=== PATIENT | male | born 1970 | race African-American/Black ===

== ENCOUNTER 2019-04-23 19:36 | Inpatient (IN) | payer OTHER ==
[2019-04-23 23:52] VITALS: BMI 26.4
--- NOTE | 2019-04-24 02:17 | HP ---
"COWS - Scale Resting Pulse: 0= [place] 80 or Below Sweatin=Flushed/Facial Moisture Restless Observation: 1= Difficult to Sit Still Pupil Size: 0= Normal to Room Light Bone or Joint Aches: 2= Severe Diffuse Aches Runny Nose/ Eye Tearin= Runny Nose/Eyes GI Upset > 30mins: 2= Nausea/Diarrhea (DIARRHEA X 3) Tremor Observation: 2= Slight Tremor Visible Yawning Observation: 0= None Anxiety or Irritability: 2=Irritable/Anxious Goose Flesh Skin: 3=Piloerection COWS Score: 16 CIWA Score Nausea/Vomitin-Mild Nausea/No Vomiting Muscle Tremors: 3 Anxiety: 3 Agitation: 4-Moderately Restless Paroxysmal Sweats: 3 Orientation: 0-Oriented Tacttile Disturbances: 0-None Auditory Disturbances: 0-None Visual Disturbances: 0-None Headache: 1-Very Mild CIWA-Ar Total Score: 15 - Admission Criteria [facility] Guidelines: Admission for Medically Managed Detox: Requires at least one of the followin. CIWA greater than 12 2. Seizures within the past 24 hours 3. Delirium tremens within the past 24 hours 4. Hallucinations within the past 24 hours 5. Acute intervention needed for co occurring medical disorder 6. Acute intervention needed for co occurring psychiatric disorder 7. Severe withdrawal that cannot be handled at a lower level of care (continued vomiting, continued diarrhea, abnormal vital signs) requiring intravenous medication and/or fluids 8. Admission [facility] Chief Complaint: Heroin and Xanax withdrawal symptoms Allergies/Adverse Reactions: Allergies Allergy/AdvReac Type Severity Reaction Status Date / Time No Known Allergies Allergy Verified 04/23/19 23:47 History of Present Illness: 48 years old male with opioid and benzodiazepine dependence is seeking admission to detox. Patient reports that he started using Heroin at age 16 years and Xanax at age 21 years. He stopped for 11 years and became dependent again. He denies any medical and psych. history. He is unemployed and homeless. He denies suicide attempt and suicidal ideation at this time. This is his first admission to [facility] Confidential Drug Utilization Report Search Terms: MANDA RAWLS, 1970 Search Date: 04/24/2019 02:14:15 AM The Drug Utilization Report below displays all of the controlled substance prescriptions, if any, that your patient has filled in the last twelve months. The information displayed on this report is compiled from pharmacy submissions to the Department, and accurately reflects the information as submitted by the pharmacies. This report was requested by: Rena Lopez | Reference #: [id number] There are no results for the search terms that you entered. Exam Limitations: No Limitations - Ebola screening Have you traveled outside of the country in the last 21 days: No (N) Have you had contact with anyone from an Ebola affected area: No Do you have a fever: No - Review of Systems Constitutional: Chills, Loss of Appetite, Malaise, Night Sweats, Changes in sleep EENT: reports: Nose Congestion Respiratory: reports: No Symptoms reported Cardiac: reports: No Symptoms Reported GI: reports: Diarrhea (x 3), Nausea, Poor Appetite, Poor Fluid Intake, Abdominal cramping : reports: No Symptoms Reported Musculoskeletal: reports: Back Pain, Muscle Pain Integumentary: reports: Dryness, Flushing Neuro: reports: Tremors Endocrine: reports: No Symptoms Reported Hematology: reports: No Symptoms Reported Psychiatric: reports: Mood/Affect Appropiate, Orientated x3, Anxious, Depressed Other Systems: Reviewed and Negative Patient History - Patient Medical History Hx Anemia: No Hx Asthma: No Hx Chronic Obstructive Pulmonary Disease (COPD): No Hx Cancer: No Hx Cardiac Disorders: No Hx Congestive Heart Failure: No Hx Hypertension: No Hx Hypercholesterolemia: No HX Cerebrovascular Accident: No Hx Seizures: No Hx Dementia: No Hx Diabetes: No Hx Gastrointestinal Disorders: No Hx Liver Disease: No Hx Genitourinary Disorders: No Hx Sexually Transmitted Disorders: No Hx Renal Disease (ESRD): No Hx Thyroid Disease: No Hx Human Immunodeficiency Virus (HIV): No (Negative 2017) Hx Hepatitis C: No Hx Depression: No Hx Suicide Attempt: No (Denies suicide attempt/ suicidal ideation at this time) Hx Bipolar Disorder: No Hx Schizophrenia: No - Patient Surgical History Past Surgical History: No - PPD History Previous Implant?: Yes Documented Results: Negative w/o proof Implanted On Prior [facility] Admission?: No PPD to be Administered?: Yes - Reproductive History Patient is a Female of Child Bearing Age (11 -55 yrs old): No (male) - Smoking Cessation Smoking history: Current every day smoker Have you smoked in the past 12 months: Yes Aproximately how many cigarettes per day: 10 Hx Chewing Tobacco Use: No Initiated information on smoking cessation: Yes 'Breaking Loose' booklet given: 04/24/19 - Substance & Tx. History Hx Alcohol Use: No Hx Substance Use: Yes Substance Use Type: Cocaine, Heroin, Marijuana, Tranquilizers Hx Substance Use Treatment: Yes ([facility]) - Substances abused Heroin Substance route: Inhalation Frequency: Daily Amount used: 13 bags/day Age of first use: 16 Date of last use: 04/23/19 Admission Physical Exam [facility] - Vital Signs Vital Signs: Vital Signs - 24 hr 04/23/19 04/24/19 23:49 00:34 Temperature 97.0 F L 97.0 F L Pulse Rate 72 72 Respiratory 16 16 Rate Blood Pressure 139/91 139/91 - Physical General Appearance: Yes: Moderate Distress, Tremorous, Irritable, Sweating, Anxious HEENTM: Yes: Within Normal Limits Respiratory: Yes: Lungs Clear, Normal Breath Sounds, No Respiratory Distress Neck: Yes: Supple Breast: Yes: Breast Exam Deferred Cardiology: Yes: Regular Rhythm, Regular Rate Abdominal: Yes: Normal Bowel Sounds, Soft Cleared for Admission [facility] - Detox or Rehab [facility] Level of Care: Medically Managed Detox Regimen/Protocol: Methadone/Valium Breathalyzer - Breathalyzer Breathalyzer: 0 Urine Drug Screen - Test Device Lot number: [id number] Expiration date: 12/15/20 - Control Is test valid?: Yes - Results Drug screen NEGATIVE: No Urine drug screen results: THC-Marijuana, MARIA LUZ-Cocaine, MOP-Opiates, OXY- Oxycodone, BZO-Benzodiazepines Inpatient Rehab Admission - Rehab Decision to Admit Inpatient rehab admission?: No"
[2019-04-24] MEDS ORDERED: BISMUTH SUBSALICYLATE 524 MG/30 ML UD PO PRN (02:36)
[2019-04-24] MEDS ORDERED: ACETAMINOPHEN 325 MG TABLET (FP) PO PRN ×2 (02:36)
[2019-04-24] MEDS ORDERED: MAGNESIUM HYDROX 2400MG/30ML ORAL SUSPENSION 30 ML CUP PO PRN (02:36)
[2019-04-24] MEDS ORDERED: MAGNESIUM CITRATE 300 ML BOTTLE PO PRN (02:36)
[2019-04-24] MEDS ORDERED: cloNIDine HCL 0.1 MG TABLET PO PRN (02:36)
[2019-04-24] MEDS ORDERED: IBUPROFEN 400 MG TABLET (FP) PO PRN (02:36)
[2019-04-24] MEDS ORDERED: MAG HYDROX/AL HYDROX/SIMETH 30 ML UNIT-DOSE CUP PO PRN (02:36)
[2019-04-24] MEDS ORDERED: NICOTINE POLACRILEX 2 MG GUM BUC PRN (02:36)
[2019-04-24] MEDS ORDERED: METHADONE HCL 10 MG TABLET (FOR DETOX USE ONLY) PO ONE (02:36)
[2019-04-24] MEDS ORDERED: MENTHOL/PHENOL 1 EACH UD MM PRN (02:36)
[2019-04-24] MEDS: diazePAM 5 MG TABLET PO PRN (03:24)
[2019-04-24] MEDS: diazePAM 5 MG TABLET PO SCH ×3 (05:44→22:02)
[2019-04-24] MEDS: PRENATAL VITAMINS W/ FOLIC ACID TABLET (FP) PO SCH (10:03)
[2019-04-24] MEDS: NICOTINE 14 MG/24 HOURS TOPICAL PATCH TD SCH (10:03)
--- NOTE | 2019-04-24 12:20 | EKG ---
Test Reason : Blood Pressure : / mmHG Vent. Rate : 068 BPM Atrial Rate : 068 BPM P-R Int : 154 ms QRS Dur : 090 ms QT Int : 404 ms P-R-T Axes : 016 085 -28 degrees QTc Int : 429 ms NORMAL SINUS RHYTHM T WAVE ABNORMALITY, CONSIDER INFERIOR ISCHEMIA ABNORMAL ECG NO PREVIOUS ECGS AVAILABLE Confirmed by Orville Benites ([id number]) on 04/24/2019 12:19:35 PM Referred By: Confirmed By:Orville Benites
--- NOTE | 2019-04-24 16:43 | PN ---
S CIWA - CIWA Score Nausea/Vomitin-No Nausea/No Vomiting Muscle Tremors: 3 Anxiety: 3 Agitation: 2 Paroxysmal Sweats: 2 Orientation: 0-Oriented Tacttile Disturbances: 0-None Auditory Disturbances: 3-Moderate Harsh/Frighten Visual Disturbances: 0-None Headache: 0-None Present CIWA-Ar Total Score: 13 BHS COWS - Scale Resting Pulse: 1= [place] 81-100 Sweatin= Chills/Flushing Restless Observation: 1= Difficult to Sit Still Pupil Size: 0= Normal to Room Light Bone or Joint Aches: 2= Severe Diffuse Aches Runny Nose/ Eye Tearin= None GI Upset > 30mins: 1= Stomach Cramp Tremor Observation of Outstretched Hands: 2= Slight Tremor Visible Yawning Observation: 1= 1-2x During Session Anxiety or Irritability: 2=Irritable/Anxious Goose Flesh Skin: 0=Smooth Skin COWS Score: 11 S Progress Note (SOAP) Subjective: Anxious, Tremors, Sweating, Body Aches, Interrupted Sleep. Objective: PATIENT A & O X 3, OBSERVED AMBULATING ON DETOX UNIT UNASSISTED. IN NO ACUTE DISTRESS. 04/24/19 16:42 Vital Signs Temperature 96.7 F L 04/24/19 14:06 Pulse Rate 86 04/24/19 14:06 Respiratory Rate 18 04/24/19 14:06 Blood Pressure 116/77 04/24/19 14:06 O2 Sat by Pulse Oximetry (%) RESULTS OF DETOX ADMISSION LABS PENDING. 04/24/19 16:43 Assessment: 04/24/19 16:43 WITHDRAWAL SYMPTOMS. Plan: CONTINUE DETOX.
[2019-04-24] MEDS: MELATONIN 5 MG TABLETS PO PRN (22:02)
[2019-04-24] MEDS: THIAMINE HCL 100 MG TABLET (FP) PO SCH (22:02)
[2019-04-25] MEDS: diazePAM 5 MG TABLET PO SCH ×2 (05:38→17:12)
[2019-04-25] MEDS ORDERED: METHADONE HCL 10 MG TABLET (FOR DETOX USE ONLY) ONE (08:16)
[2019-04-25] MEDS ORDERED: METHADONE HCL 5 MG TABLET (FOR DETOX USE ONLY) ONE (08:16)
[2019-04-25] MEDS ORDERED: METHADONE (DETOX) 20 MG, METHADONE (DETOX) 5 MG PO ONE (10:00)
[2019-04-25] MEDS: NICOTINE 14 MG/24 HOURS TOPICAL PATCH TD SCH (10:33)
[2019-04-25] MEDS: PRENATAL VITAMINS W/ FOLIC ACID TABLET (FP) PO SCH (10:33)
--- NOTE | 2019-04-25 10:43 | PN ---
[facility] CIWA - CIWA Score Nausea/Vomitin Muscle Tremors: 3 Anxiety: 3 Agitation: 0-Normal Activity Paroxysmal Sweats: 1-Minimal Palms Moist Orientation: 0-Oriented Tacttile Disturbances: 1-Very Mild Itch/Numbness Auditory Disturbances: 0-None Visual Disturbances: 0-None Headache: 1-Very Mild CIWA-Ar Total Score: 12 BHS COWS - Scale Resting Pulse: 0= [place] 80 or Below Sweatin= Chills/Flushing Restless Observation: 1= Difficult to Sit Still Pupil Size: 1= Pupils >than Normal Bone or Joint Aches: 1= Mild Discomfort Runny Nose/ Eye Tearin= Runny Nose/Eyes GI Upset > 30mins: 2= Nausea/Diarrhea Tremor Observation of Outstretched Hands: 1= Tremor [place], Not Seen Yawning Observation: 2= >3x During Session Anxiety or Irritability: 1=Feels Anxious/Irritable Goose Flesh Skin: 0=Smooth Skin COWS Score: 12 [facility] Progress Note (SOAP) Subjective: c/o of diarrhea, nausea, yawing, weakness, back pain, interrupted sleep Objective: 04/25/19 10:43 Vital Signs Temperature 97.6 F 04/25/19 09:13 Pulse Rate 78 04/25/19 09:13 Respiratory Rate 18 04/25/19 09:13 Blood Pressure 119/80 04/25/19 09:13 O2 Sat by Pulse Oximetry (%) labs pending Assessment: 04/25/19 10:46 Aox3 no acute distress no adventitious breath sounds full ROM no gait abnormality , ambulating in the unit withdrawal sx Plan: increase PO fluids continue detox continue to monitor
[2019-04-25 11:58] LABS: HEMATOCRIT 45.8 % (35.4-49); HEMOGLOBIN 15.1 GM/dL (11.7-16.9); MCH 28.7 pg (25.7-33.7); MCHC 33.1 g/dl (32.0-35.9); MEAN CELL VOLUME 86.8 fl (80-96); MEAN PLT VOLUME 8.6 fl (7.5-11.1); PLATELET COUNT 191 K/MM3 (134-434); RBC 5.28 M/mm3 (4.00-5.60); WHITE BLOOD COUNT 8.1 K/mm3 (4.0-10.0)
[2019-04-25 12:12] LABS: ALBUMIN 3.4 g/dl (3.4-5.0); BILIRUBIN,TOTAL 0.3 mg/dL (0.2-1); BLOOD UREA NITROGEN 11.1 mg/dL (7-18); CREATININE 1.1 mg/dL (0.55-1.3); POTASSIUM 4.1 mmol/L (3.5-5.1); TOT PROT 6.4 g/dl (6.4-8.2)
[2019-04-25] MEDS: THIAMINE HCL 100 MG TABLET (FP) PO SCH (22:31)
[2019-04-26] MEDS ORDERED: diazePAM 5 MG TABLET PO ONE (06:00)
[2019-04-26] MEDS ORDERED: METHADONE HCL 10 MG TABLET (FOR DETOX USE ONLY) PO ONE (10:00)
[2019-04-26] MEDS: PRENATAL VITAMINS W/ FOLIC ACID TABLET (FP) PO SCH (10:25)
[2019-04-26] MEDS: NICOTINE 14 MG/24 HOURS TOPICAL PATCH TD SCH (10:26)
[2019-04-26] MEDS: METHOCARBAMOL 500 MG TABLET PO PRN ×2 (10:26→17:57)
--- NOTE | 2019-04-26 17:46 | PN ---
S CIWA - CIWA Score Nausea/Vomitin-No Nausea/No Vomiting Muscle Tremors: None Anxiety: 2 Agitation: 2 Paroxysmal Sweats: No Perspiration Orientation: 0-Oriented Tacttile Disturbances: 1-Very Mild Itch/Numbness Auditory Disturbances: 0-None Visual Disturbances: 2-Mild Sensitivity Headache: 0-None Present CIWA-Ar Total Score: 7 BHS COWS - Scale Resting Pulse: 0= [place] 80 or Below Sweatin= Chills/Flushing Restless Observation: 1= Difficult to Sit Still Pupil Size: 0= Normal to Room Light Bone or Joint Aches: 2= Severe Diffuse Aches Runny Nose/ Eye Tearin= None GI Upset > 30mins: 0= None Tremor Observation of Outstretched Hands: 0= None Yawning Observation: 1= 1-2x During Session Anxiety or Irritability: 2=Irritable/Anxious Goose Flesh Skin: 0=Smooth Skin COWS Score: 7 S Progress Note (SOAP) Subjective: Fatigue, Body Aches, Anxious. Objective: PATIENT A & O X 3, OBSERVED AMBULATING ON DETOX UNIT UNASSISTED. IN NO ACUTE DISTRESS. 04/26/19 17:46 Vital Signs Temperature 99.2 F 04/26/19 14:17 Pulse Rate 60 04/26/19 14:17 Respiratory Rate 20 04/26/19 14:17 Blood Pressure 121/91 04/26/19 14:17 O2 Sat by Pulse Oximetry (%) Laboratory Tests 04/25/19 04/25/19 04/25/19 08:45 08:45 08:45 WBC 8.1 RBC 5.28 Hgb 15.1 Hct 45.8 MCV 86.8 MCH 28.7 MCHC 33.1 RDW 14.0 Plt Count 191 MPV 8.6 Sodium 138 Potassium 4.1 Chloride 104 Carbon Dioxide 27 Anion Gap 7 L BUN 11.1 Creatinine 1.1 Est GFR (CKD-EPI)AfAm 92.16 Est GFR (CKD-EPI)NonAf 79.52 Random Glucose 82 Calcium 9.0 Total Bilirubin 0.3 AST 18 ALT 21 Alkaline Phosphatase 48 Total Protein 6.4 Albumin 3.4 RPR Titer Nonreactive LABS NOTED. Assessment: 04/26/19 17:46 WITHDRAWAL SYMPTOMS. Plan: CONTINUE DETOX.
[2019-04-26] MEDS: diazePAM 5 MG TABLET PO PRN (17:57)
[2019-04-26] MEDS: THIAMINE HCL 100 MG TABLET (FP) PO SCH (22:05)
[2019-04-26] MEDS: MELATONIN 5 MG TABLETS PO PRN (22:05)
[2019-04-26] MEDS: hydrOXYzine PAMOATE 25 MG CAPSULE (FP) PO PRN (22:06)
[2019-04-27] MEDS ORDERED: METHADONE HCL 10 MG TABLET (FOR DETOX USE ONLY) ONE (08:48)
[2019-04-27] MEDS ORDERED: METHADONE HCL 5 MG TABLET (FOR DETOX USE ONLY) ONE (08:48)
--- NOTE | 2019-04-27 09:52 | CONSULT ---
[facility] Psychiatric Consult - Data Date of interview: 04/27/19 Admission source: [facility] Identifying data: Patient is a 48 year old single male, father of one, unemployed, homelesss, and is not receiving financial assistance. This is patient's first admission to detox at [facility]. Patient admitted to for cocaine and opiate dependence. Substance Abuse History: - Smoking Cessation. Smoking history: Current every day smoker. Have you smoked in the past 12 months: Yes. Aproximately how many cigarettes per day: 10. Hx Chewing Tobacco Use: No. Initiated information on smoking cessation: Yes. 'Breaking Loose' booklet given: 04/24/19. - Substance & Tx. History. Hx Alcohol Use: No. Hx Substance Use: Yes. Substance Use Type : Cocaine, Heroin, Marijuana, Tranquilizers. Hx Substance Use Treatment: Yes ( [facility]). - Substances abused. Heroin. Substance route: Inhalation. Frequency: Daily. Amount used: 13 bags/day. Age of first use: 16. Date of last use: 04/23/19 Medical History: denies. Psychiatric History: Patient denies history of psychiatric hospitalization, outpatient care, and suicide attempt. Patient reports history of accepting trazodone when admitted to detox/rehab facilities. At present, patient reports difficulty sleeping. Physical/Sexual Abuse/Trauma History: denies. Mental Status Exam - Mental Status Exam Alert and Oriented to: Time, Place, Person Cognitive Function: Good Patient Appearance: Well Groomed Mood: Withdrawn Affect: Mood Congruent Patient Behavior: Cooperative Speech Pattern: Appropriate Voice Loudness: Normal Thought Process: Goal Oriented Thought Disorder: Not Present Hallucinations: Denies Suicidal Ideation: Denies Homicidal Ideation: Denies Insight/Judgement: Poor Sleep: Poorly Appetite: Fair Muscle strength/Tone: Normal Gait/Station: Normal Psychiatric Findings - Problem List ([place] 1, 2,3) (1) Opiate dependence Current Visit: Yes Status: Acute (2) Sedative hypnotic or anxiolytic dependence Current Visit: Yes Status: Acute (3) Cocaine dependence Current Visit: Yes Status: Acute (4) Substance-induced sleep disorder Current Visit: Yes Status: Acute - Initial Treatment Plan Initial Treatment Plan: Psychoeducation provided. Detoxification in progress. Will order Trazdone 50mg HS. Benefits and side effects discussed. Verbal consent given.
[2019-04-27] MEDS ORDERED: METHADONE (DETOX) 10 MG, METHADONE (DETOX) 5 MG PO ONE (10:00)
[2019-04-27] MEDS: NICOTINE 14 MG/24 HOURS TOPICAL PATCH TD SCH (10:02)
[2019-04-27] MEDS: PRENATAL VITAMINS W/ FOLIC ACID TABLET (FP) PO SCH (10:02)
[2019-04-27] MEDS: METHOCARBAMOL 500 MG TABLET PO PRN ×2 (10:03→22:04)
[2019-04-27] MEDS: hydrOXYzine PAMOATE 25 MG CAPSULE (FP) PO PRN ×2 (17:23→22:04)
--- NOTE | 2019-04-27 17:31 | PN ---
S CIWA - CIWA Score Nausea/Vomitin-No Nausea/No Vomiting Muscle Tremors: None Anxiety: 3 Agitation: 2 Paroxysmal Sweats: No Perspiration Orientation: 0-Oriented Tacttile Disturbances: 1-Very Mild Itch/Numbness Auditory Disturbances: 0-None Visual Disturbances: 0-None Headache: 0-None Present CIWA-Ar Total Score: 6 BHS COWS - Scale Resting Pulse: 0= [place] 80 or Below Sweatin= Chills/Flushing Restless Observation: 1= Difficult to Sit Still Pupil Size: 0= Normal to Room Light Bone or Joint Aches: 2= Severe Diffuse Aches Runny Nose/ Eye Tearin= None GI Upset > 30mins: 0= None Tremor Observation of Outstretched Hands: 4= Gross Tremor/Twitching Yawning Observation: 0= None Anxiety or Irritability: 2=Irritable/Anxious Goose Flesh Skin: 0=Smooth Skin COWS Score: 10 BHS Progress Note (SOAP) Subjective: Anxious, Fatigue, Body Aches, Poor Appetite. Patient reports that current Withdrawal / Detox are subsiding. Objective: PATIENT A & O X 3, OBSERVED AMBULATING ON DETOX UNIT UNASSISTED. IN NO ACUTE DISTRESS. 04/27/19 17:32 Vital Signs Temperature 96.8 F L 04/27/19 13:43 Pulse Rate 70 04/27/19 13:43 Respiratory Rate 18 04/27/19 13:43 Blood Pressure 116/79 04/27/19 13:43 O2 Sat by Pulse Oximetry (%) Laboratory Tests 04/25/19 04/25/19 04/25/19 08:45 08:45 08:45 WBC 8.1 RBC 5.28 Hgb 15.1 Hct 45.8 MCV 86.8 MCH 28.7 MCHC 33.1 RDW 14.0 Plt Count 191 MPV 8.6 Sodium 138 Potassium 4.1 Chloride 104 Carbon Dioxide 27 Anion Gap 7 L BUN 11.1 Creatinine 1.1 Est GFR (CKD-EPI)AfAm 92.16 Est GFR (CKD-EPI)NonAf 79.52 Random Glucose 82 Calcium 9.0 Total Bilirubin 0.3 AST 18 ALT 21 Alkaline Phosphatase 48 Total Protein 6.4 Albumin 3.4 RPR Titer Nonreactive LABS NOTED. Assessment: 04/27/19 17:32 WITHDRAWAL SYMPTOMS. Plan: CONTINUE DETOX. ENSURE PO FOR CALORIC SUPPLEMENTATION.
[2019-04-27] MEDS: traZODone HCL 50 MG TABLET (FP) PO SCH (22:04)
[2019-04-27] MEDS: THIAMINE HCL 100 MG TABLET (FP) PO SCH (22:04)
[2019-04-27] MEDS: MELATONIN 5 MG TABLETS PO PRN (22:05)
[2019-04-28] MEDS ORDERED: METHADONE HCL 10 MG TABLET (FOR DETOX USE ONLY) PO ONE (10:00)
[2019-04-28] MEDS: PRENATAL VITAMINS W/ FOLIC ACID TABLET (FP) PO SCH (10:29)
[2019-04-28] MEDS: METHOCARBAMOL 500 MG TABLET PO PRN (10:29)
[2019-04-28] MEDS: NICOTINE 14 MG/24 HOURS TOPICAL PATCH TD SCH (10:29)
[2019-04-28] MEDS: hydrOXYzine PAMOATE 25 MG CAPSULE (FP) PO PRN (10:30)
--- NOTE | 2019-04-28 12:25 | PN ---
[facility] CIWA - CIWA Score Nausea/Vomitin-No Nausea/No Vomiting Muscle Tremors: None Anxiety: 2 Agitation: 0-Normal Activity Paroxysmal Sweats: 2 Orientation: 0-Oriented Tacttile Disturbances: 0-None Auditory Disturbances: 0-None Visual Disturbances: 0-None Headache: 1-Very Mild CIWA-Ar Total Score: 5 BHS COWS - Scale Resting Pulse: 0= [place] 80 or Below Sweatin= Chills/Flushing Restless Observation: 1= Difficult to Sit Still Pupil Size: 0= Normal to Room Light Bone or Joint Aches: 1= Mild Discomfort Runny Nose/ Eye Tearin= None GI Upset > 30mins: 0= None Tremor Observation of Outstretched Hands: 0= None Yawning Observation: 1= 1-2x During Session Anxiety or Irritability: 1=Feels Anxious/Irritable Goose Flesh Skin: 0=Smooth Skin COWS Score: 5 S Progress Note (SOAP) Subjective: c/o mild anxiety, irritability, and sweats. Objective: 04/28/19 12:23 Vital Signs 04/28/19 04/28/19 06:59 09:29 Temperature 97.5 F L 97.4 F L Pulse Rate 67 66 Respiratory 16 18 Rate Blood Pressure 98/64 104/72 Lab Results WBC 8.1 K/mm3 (4.0-10.0) 04/25/19 08:45 RBC 5.28 M/mm3 (4.00-5.60) 04/25/19 08:45 Hgb 15.1 GM/dL (11.7-16.9) 04/25/19 08:45 Hct 45.8 % (35.4-49) 04/25/19 08:45 MCV 86.8 fl (80-96) 04/25/19 08:45 MCHC 33.1 g/dl (32.0-35.9) 04/25/19 08:45 RDW 14.0 % (11.9-15.9) 04/25/19 08:45 Plt Count 191 K/MM3 (134-434) 04/25/19 08:45 Sodium 138 mmol/L (136-145) 04/25/19 08:45 Potassium 4.1 mmol/L (3.5-5.1) 04/25/19 08:45 Chloride 104 mmol/L (98-107) 04/25/19 08:45 Carbon Dioxide 27 mmol/L (21-32) 04/25/19 08:45 Anion Gap 7 MMOL/L (8-16) L 04/25/19 08:45 BUN 11.1 mg/dL (7-18) 04/25/19 08:45 Creatinine 1.1 mg/dL (0.55-1.3) 04/25/19 08:45 Random Glucose 82 mg/dL (74-106) 04/25/19 08:45 Calcium 9.0 mg/dL (8.5-10.1) 04/25/19 08:45 Labs noted. Assessment: 04/28/19 12:23 AOX3, in no acute respiratory distress. Full ROM, ambulating in the unit. Withdrawal symptoms. For d/c tomorrow. Plan: continue detox. D/C in AM.
[2019-04-28] MEDS: THIAMINE HCL 100 MG TABLET (FP) PO SCH (22:45)
[2019-04-28] MEDS: traZODone HCL 50 MG TABLET (FP) PO SCH (22:45)
[2019-04-29] MEDS ORDERED: METHADONE HCL 5 MG TABLET (FOR DETOX USE ONLY) PO ONE (06:00)
[2019-04-29 09:46] VITALS: BP 124/92; PULSE 83; TEMP 97.1
--- NOTE | 2019-04-29 13:29 | DS ---
[facility] Detox Discharge Summary Admission Date: 04/24/19 Discharge Date: 04/29/19 - History Present History: Alcohol Dependence, Cannabis Dependence, Cocaine Dependence, Opioid Dependence Additional Comments: Pt is medically cleared and discharge today. Pt completed his detox protocol. Pt is encouraged to follow-up with [facility] outpatient program and also to follow-up with his pmd. Pt verbalized understanding of the information given. Pt is alert and oriented x3 and in no respiratory distress. Pertinent Past History: H/O cocaine, heroin, cannabis, and alcohol use disorder. - Physical Exam Results Vital Signs: Vital Signs Temperature 97.1 F L 04/29/19 09:20 Pulse Rate 83 04/29/19 09:20 Respiratory Rate 16 04/29/19 09:20 Blood Pressure 124/92 04/29/19 09:20 O2 Sat by Pulse Oximetry (%) Vital Signs 04/29/19 04/29/19 06:30 09:20 Temperature 97.6 F 97.1 F L Pulse Rate 68 83 Respiratory 16 16 Rate Blood Pressure 113/72 124/92 Lab Results WBC 8.1 K/mm3 (4.0-10.0) 04/25/19 08:45 RBC 5.28 M/mm3 (4.00-5.60) 04/25/19 08:45 Hgb 15.1 GM/dL (11.7-16.9) 04/25/19 08:45 Hct 45.8 % (35.4-49) 04/25/19 08:45 MCV 86.8 fl (80-96) 04/25/19 08:45 MCHC 33.1 g/dl (32.0-35.9) 04/25/19 08:45 RDW 14.0 % (11.9-15.9) 04/25/19 08:45 Plt Count 191 K/MM3 (134-434) 04/25/19 08:45 Sodium 138 mmol/L (136-145) 04/25/19 08:45 Potassium 4.1 mmol/L (3.5-5.1) 04/25/19 08:45 Chloride 104 mmol/L (98-107) 04/25/19 08:45 Carbon Dioxide 27 mmol/L (21-32) 04/25/19 08:45 Anion Gap 7 MMOL/L (8-16) L 04/25/19 08:45 BUN 11.1 mg/dL (7-18) 04/25/19 08:45 Creatinine 1.1 mg/dL (0.55-1.3) 04/25/19 08:45 Random Glucose 82 mg/dL (74-106) 04/25/19 08:45 Calcium 9.0 mg/dL (8.5-10.1) 04/25/19 08:45 Labs noted. Pertinent Admission Physical Exam Findings: withdrawal symptoms. - Treatment Hospital Course: Detox Protocol Followed, Detoxed Safely, Responded well, Discharged Condition Good - Medication Discharge Medications: Ambulatory Orders NK [No Known Home Medication] 04/23/19 - Diagnosis (1) Cocaine dependence Status: Acute (2) Opiate dependence Status: Acute (3) Sedative hypnotic or anxiolytic dependence Status: Acute - AMA Did Patient Leave Against Medical Advice: No
== END 2019-04-29 09:18 | disposition home or self-care (01) | DRG 773 ==
LOC: EDBD 19:36 → YASAS 19:36 → Y3N 04-24 02:44
PROVIDERS: ADMIT Allergy & Immunology; ATTEND Allergy & Immunology
PROC: HZ2ZZZZ Detoxification Services for Substance Abuse Treatment (ICD-10-PCS; principal; 2019-04-24)
DX: F11.23 Opioid dependence with withdrawal (principal); F13.20 Sedative, hypnotic or anxiolytic dependence, uncomplicated; F14.20 Cocaine dependence, uncomplicated; F12.20 Cannabis dependence, uncomplicated; F17.210 Nicotine dependence, cigarettes, uncomplicated; F19.282 Other psychoactive substance dependence with psychoactive substance-induced sleep disorder; Z59.0 Homelessness
CPT/HCPCS: 36415; 80053; 85027; 86593; 93005; 93010; J0735